=== PATIENT | male | born 1985 | race African-American/Black ===

== ENCOUNTER 2016-09-07 08:27 | Emergency (ER) | payer MEDICAID ==
[~2016-09-07] VITALS: Ht 170.2 cm; Wt 62.6 kg
[2016-09-07 08:31] VITALS: BP 150/88
[2016-09-07] MEDS ORDERED: TETANUS-DIPTH-ACEL PERTUSSIS 0.5ML SYRG IM ONE (09:30)
[2016-09-07] MEDS ORDERED: IBUPROFEN 800 MG TAB PO ONE (09:30)
== END 2016-09-07 09:47 | disposition home or self-care (01) ==
LOC: ER 08:31
DX: S62.307A Unspecified fracture of fifth metacarpal bone, left hand, initial encounter for closed fracture (principal); S62.306A Unspecified fracture of fifth metacarpal bone, right hand, initial encounter for closed fracture; F17.210 Nicotine dependence, cigarettes, uncomplicated; V00.131A Fall from skateboard, initial encounter; Y93.51 Activity, roller skating (inline) and skateboarding; Y92.89 Other specified places as the place of occurrence of the external cause; Y99.8 Other external cause status
CPT/HCPCS: 29125; 73130; 90471; 90715